=== PATIENT | male | born 2000 | race Caucasian/White ===

== ENCOUNTER 2022-07-07 17:15 | Emergency (ER) | payer OTHER, SELFPAY ==
[2022-07-07 17:16] VITALS: BP 129/89; PULSE 85; RESP 16; TEMP 36.8; O2SAT 98; BMI 24.8
--- NOTE | 2022-07-07 17:37 | ED.VIS.DENTA ---
HPI History of Present Illness Chief Complaint: Dental Informant: patient Narrative Narrative: Patient states he has had some dental pain for over a year, but he has had significant worsening today after chipping another piece of tooth off while eating. Pain has been persistent now all day. No swelling, discharge, bleeding, fevers or chills. Has not seen a dentist yet for this. PFSH PFSH Medical History no medical history no medical history Home Medications amoxicillin 500 mg tablet 500 mg PO TID #30 tabs 07/07/22 [Rx Last Taken Unknown] Social History Smoking Status: Never smoker ROS ROS ED Constitutional Constitutional ED: Denies chills or fever(s) Eyes Eyes: Denies change in vision or double vision ENT ENT ED: Reports dental pain; Denies sinus pain or throat swelling Cardiovascular Cardiovascular: Denies chest pain or palpitations Respiratory/Chest Respiratory/Chest: Denies cough or dyspnea Integumentary Denies abscess or rash Neurologic Neurologic: Denies headache(s), paresthesias or weakness EXAM Physical Exam Const Vital Signs: 07/07/22 17:16 Temperature 98.2 F Temperature Source Temporal Pulse Rate 85 Respiratory Rate 16 Blood Pressure 129/89 H Blood Pressure Mean 102 Pulse Ox 98 Oxygen Delivery Method Room Air Positive well nourished and well developed General Appearance ED: well developed and NAD HEENT HEENT Narrative: Very poor dentition especially along the right mandibular rover the patient has tenderness at tooth #31 which has a large deficit posterior laterally, and approximately tooth #28 which there is an anterior deficit near the gumline. No bleeding from either of these. Mild gingival irritation at both of these areas but no significant hypertrophy, and no necrosis or bleeding. No trismus. Floor of mouth soft and nondistended. No external facial swelling or abscess in the buccal mucosa. Face and Sinus: sinuses nontender Throat: posterior oropharynx normal Eyes PERRL and EOMs intact bilaterally Neck no lymphadenopathy and supple Resp normal respiratory effort Neuro oriented x3 and CN's II-XII intact bilaterally Sensorium / Orientation: alert Gait (Neuro): normal gait Psych mental status grossly normal and thought process normal Skin no rashes or lesions noted and no wounds MDM MDM MDM Narrative Medical decision making narrative: I placed Cavit temporary filling in both of the affected teeth deficits he tolerated this well. We will put him on antibiotics to prevent abscess formation, and he was given a dose of Naprosyn here prior to discharge along with a dental referral list. Discharge Plan Triage Chief Complaint: Dental ED Provider: Ezequiel Dominique Dx/Rx/DC Orders Clinical Impression: Odontalgia, Dental decay Instructions: ED Dental Cavity Prescriptions: New amoxicillin 500 mg tablet 500 mg PO TID Qty: 30 0RF Primary Care Provider: NOT,DEFINED Referrals: NOT,DEFINED [Primary Care Provider] - Dentist,Your [STAFF PHYSICIAN] - As soon as possible (see referral list attached if needed) Disposition Disposition: Home, Self Care
[2022-07-07] MEDS: Naproxen 250 MG Tablet 500 MG PO (17:53)
[2022-07-07] MEDS: AMOXICILLIN 500 MG CAPSULE PO (17:53)
== END 2022-07-07 18:06 | disposition home or self-care (01) ==
LOC: ED 18:05
PROVIDERS: Emergency Provider Emergency Medicine; Visit Provider Emergency Medicine
DX: K02.9 Dental caries, unspecified (principal)
CPT/HCPCS: 99283

== ENCOUNTER 2022-11-30 23:45 | Emergency (ER) | payer OTHER, SELFPAY ==
[2022-11-30 23:47] VITALS: BP 122/94; PULSE 145; RESP 18; TEMP 37.2; O2SAT 98; BMI 23.9
--- NOTE | 2022-12-01 01:09 | EDS_ITS ---
HPI History of Present Illness Chief Complaint: General Illness Informant: patient Narrative Narrative: Patient is a 22-year-old male with no significant past medical history. He states approximate 2 hours prior to arrival he began feeling cold. He states that he put long sleeves and a sweatshirt on used a weighted blanket and the feeling of coldness would not resolve. Secondary to this he comes in for evaluation. He denies any known sick contacts. He admits to mild congestion and drainage but otherwise states that he has been feeling normal prior to the onset of the chills. PFSH PFSH Allergy/AdvReac Type Severity Reaction Status Date / Time No Known Allergies Allergy Verified 11/30/22 23:47 Family History (Updated 09/18/22 @ 09:17 by Jessie Argueta) Grandfather CVA (cerebral vascular accident) Surgical History History of appendectomy History of placement of ear tubes Social History Smoking Status: Never smoker ROS ROS ED Constitutional Constitutional ED: Reports chills and subjective; Denies fever(s) ENT ENT ED: Reports rhinorrhea; Denies sore throat Cardiovascular Cardiovascular: Denies chest pain Respiratory/Chest Respiratory/Chest: Denies cough or dyspnea Gastrointestinal Gastrointestinal: Denies abdominal pain, diarrhea, nausea or vomiting Genitourinary Genitourinary ED: Denies dysuria Musculoskeletal Musculoskeletal: Denies myalgias Integumentary Denies rash Neurologic Neurologic: Denies headache(s) Hematologic/Lymphatic Hematologic/Lymphatic: Denies easy bleeding or easy bruising EXAM Physical Exam Const Vital Signs: 11/30/22 23:47 12/01/22 00:17 Temperature 98.9 F Temperature Source Temporal Pulse Rate 145 H Respiratory Rate 18 Respiratory Pattern Normal Blood Pressure 122/94 H Blood Pressure Mean 103 Pulse Ox 98 Oxygen Delivery Method Room Air Positive well nourished and well developed General Appearance ED: well developed; Negative for pallor HEENT Reports moist mucous membranes HEENT Narrative: Nasal mucosa is hyperemic and boggy Posterior pharynx has mild erythema with cobblestoning consistent with sinus drainage and scant exudates without trismus change in voice difficulty with secretions or hard palate petechiae. Eyes PERRL and EOMs intact bilaterally General Eye ED: Negative for scleral icterus Neck supple Neck Narrative: No nuchal rigidity or meningeal signs noted Resp normal respiratory effort and clear to auscultation bilaterally Cardio regular rhythm Rate: tachycardic and other Other Details: Tachycardic rate with regular rhythm No murmurs rubs or gallops noted Radial and carotid pulses are equal and symmetric GI normal to inspection, nondistended, normoactive bowel sounds, non-tender, non-distended and no masses Auscultation: normoactive bowel sounds Palpation: soft Extremity normal to inspection Extremity Narrative: No asymmetric edema no pitting edema negative Homans' sign bilaterally Neuro oriented x3 and CN's II-XII intact bilaterally Sensorium / Orientation: alert Psych Mood & Affect: anxious Skin no rashes or lesions noted General Skin Exam: Negative for jaundice or pallor MDM MDM MDM Narrative Medical decision making narrative: Patient presented to the ER tachycardic but otherwise with stable vitals. He reported the sudden onset of chills with no real associated symptoms. On exam he does have mild congestion and drainage and therefore there is concern that this is viral in nature such as COVID or influenza. Also with the scant exudates present in the posterior pharynx strep throat is a possibility. Therefore this time I did elect to perform a rapid strep swab as well as COVID and influenza testing. He did not have any chest pain or pleuritic chest pain he is not hypoxic he does not have lower extremity asymmetric edema and therefore my concern for DVT/PE is low and do not feel there is need for a D- dimer or CTA. His abdomen is also soft and nonsurgical he is not having abdo katerina pain or symptoms of nausea vomiting or diarrhea so do not feel need for a CT of his abdomen or further laboratory evaluation. Therefore at this time as his history and exam is most consistent with a viral syndrome causing subjective chills but he is not having signs of respiratory distress or need for supplemental oxygen or signs of systemic infection/septicemia I do not believe there is need for further work-up or further evaluation in the ER and he is otherwise safe for discharge History & Record Review Discussion w/independent historian: Patient Discharge Plan Triage Chief Complaint: General Illness ED Provider: Nicola Nava Dx/Rx/DC Orders Clinical Impression: Viral syndrome, Chills (without fever) Instructions: ED Viral Syndrome (Adult) Primary Care Provider: Care Physician,No Primary Referrals: Cedric Cohen MD [Med Staff - Active Staff] - Care Physician,No Primary [Primary Care Provider] - Disposition Disposition: Home, Self Care Discharge Date/Time: 12/01/22 01:15
== END 2022-12-01 01:15 | disposition home or self-care (01) ==
PROVIDERS: Emergency Provider Emergency Medicine; Visit Provider Emergency Medicine
DX: B34.9 Viral infection, unspecified (principal); R68.83 Chills (without fever)
CPT/HCPCS: 87428; 87880; 99282